=== PATIENT | female | born 1975 | race Caucasian/White ===

== ENCOUNTER 2022-12-15 04:01 | Day surgery (SDC) | payer BC ==
[2022-12-09 10:54] VITALS: BMI 27.4
[2022-12-15] MEDS ORDERED: KETAMINE HCL 500 MG/10 ML VIAL ONE (06:50)
[2022-12-15] MEDS ORDERED: MIDAZOLAM HCL 2 MG/2 ML SINGLE DOSE VIAL ONE (06:51)
[2022-12-15] MEDS ORDERED: PROPOFOL 80 ML ONE (06:51)
[2022-12-15 06:56] VITALS: RESP 18
[2022-12-15] MEDS ORDERED: IBUPROFEN 600 MG TABLET (FP) PO PRN (07:47)
[2022-12-15] MEDS ORDERED: oxyCODONE HCL 5 MG TABLET PO PRN ×2 (07:47→09:23)
[2022-12-15] MEDS ORDERED: ONDANSETRON 4 MG/2 ML VIAL IVPUSH PRN ×2 (07:47→09:23)
[2022-12-15] MEDS ORDERED: IBUPROFEN 800 MG/8 ML IJ IVPB PRN (07:47)
[2022-12-15] MEDS ORDERED: ELECTROLYTE-148 SOLN 1,000 ML IV SCH (08:00)
[2022-12-15] MEDS ORDERED: ACETAMINOPHEN 1000 MG/100 ML BAG IVPB ONE (09:24)
[2022-12-15] MEDS ORDERED: LACTATED RINGERS SOLUTION 1,000 ML IV SCH (09:30)
[2022-12-15 11:06] VITALS: BP 118/78; PULSE 76; TEMP 97
== END 2022-12-15 11:10 | disposition home or self-care (01) ==
LOC: JASU-SURG 04:01
PROVIDERS: ATTEND Obstetrics & Gynecology
PROC: 0UB98ZZ Excision of Uterus, Via Natural or Artificial Opening Endoscopic (ICD-10-PCS; principal; 2022-12-15 07:30)
DX: N92.0 Excessive and frequent menstruation with regular cycle (principal); D25.0 Submucous leiomyoma of uterus; N84.0 Polyp of corpus uteri
CPT/HCPCS: 81025; 88305-TC; 94760

== ENCOUNTER 2024-03-27 08:49 | Emergency (ER) | payer BC ==
[2024-03-27 09:04] VITALS: TEMP 98.1; BMI 28.3
[2024-03-27] MEDS ORDERED: valACYclovir HCL 500 MG TABLET (FP) ONE (10:39)
[2024-03-27] MEDS ORDERED: predniSONE 20 MG TABLET (UD) ONE (10:39)
[2024-03-27] MEDS: valACYclovir HCL 500 MG TABLET (FP) PO ONE (10:42)
[2024-03-27] MEDS: predniSONE 20 MG TABLET (UD) PO ONE (10:42)
[2024-03-27 12:51] LABS: HIV INTERPRETATION NEGATIVE (NEGATIVE)
[2024-03-27 13:29] VITALS: BP 146/88; PULSE 78; RESP 18
== END 2024-03-27 13:29 | disposition home or self-care (01) ==
LOC: JER 08:49
DX: G51.0 Bell's palsy (principal); R53.1 Weakness
CPT/HCPCS: 36415; 70450-TC; 86618; 86803; 87389; 93005; 93010; 99285-25